=== PATIENT | female | born 2000 | race Hispanic/Latino ===

== ENCOUNTER 2023-01-31 15:19 | Emergency (ER) | payer BC ==
[~2023-01-31] VITALS: Ht 152.4 cm; Wt 84.5 kg
[2023-01-31] MEDS ORDERED: GABAPENTIN300 MG PO (16:58)
[2023-01-31] MEDS ORDERED: KETOROLAC TROMETHAMINE 30 MG/ML VIAL IM STA ×2 (17:46→18:01)
[2023-01-31] MEDS ORDERED: KETOROLAC TROMETHAMINE 30 MG/ML VIAL ONE (18:19)
== END 2023-01-31 18:18 | disposition home or self-care (01) ==
LOC: FSED 15:28
DX: S00.83XA Contusion of other part of head, initial encounter (principal); S16.1XXA Strain of muscle, fascia and tendon at neck level, initial encounter; Y04.8XXA Assault by other bodily force, initial encounter; Y92.89 Other specified places as the place of occurrence of the external cause; N80.9 Endometriosis, unspecified
CPT/HCPCS: 70450; 72125; 81025; 96372; 99283; J1885

== ENCOUNTER 2023-03-29 07:53 | Emergency (ER) | payer BC ==
[~2023-03-29] VITALS: Ht 152.4 cm; Wt 84.6 kg
[~2023-03-29 07:53] MED LIST: GABAPENTIN300 MG PO
[2023-03-29] MEDS ORDERED: KETOROLAC TROMETHAMINE 30 MG/ML VIAL ONE (09:14)
[2023-03-29] MEDS ORDERED: KETOROLAC TROMETHAMINE 30 MG/ML VIAL IM STA (09:18)
[2023-03-29 09:23] VITALS: O2SAT 97
== END 2023-03-29 09:29 | disposition home or self-care (01) ==
LOC: FSED 07:57
DX: N92.0 Excessive and frequent menstruation with regular cycle (principal); N80.9 Endometriosis, unspecified
CPT/HCPCS: 81003; 81025; 85025; 99283; J1885